=== PATIENT | male | born 1970 ===

== ENCOUNTER 2022-11-24 16:28 | Emergency (ER) | payer BC, OTHER ==
[~2022-11-24 16:28] MED LIST: ALDACTONE25 MG PO; ATORVASTATIN CA20 M1 PO; ERYTHROMYCIN OPH1 GM OPH; FUROSEMIDE40 MG PO; GABAPENTIN800 MG PO; Ipratropium Brom3 ML INH; LACTULOSE20 GM/30 M PO; LOTEPREDNOL ETA10 ML OP; PANTOPRAZOLE SO40 MG PO; PROPRANOLOL HCL20 M1 PO
== END 2022-11-24 18:50 | disposition left against medical advice (07) ==
LOC: ED 16:28
DX: M79.662 Pain in left lower leg (principal); Z53.21 Procedure and treatment not carried out due to patient leaving prior to being seen by health care provider

== ENCOUNTER 2023-08-05 00:19 | Emergency (ER) | payer OTHER ==
[~2023-08-05] VITALS: Ht 177.8 cm; Wt 65.8 kg
[2023-08-05] MEDS ORDERED: SODIUM CHLORIDE 0.9% 1,000 ML IV ONE (00:45)
[2023-08-05 01:09] LABS: HEMATOCRIT 40.6 % (42.0-52.0); MEAN CORPUSCULAR HGB 34.2 pg (27.0-31.0); MEAN CORPUSCULAR HGB CONC 33.5 g/dl (33.0-37.0); MEAN PLATELET VOLUME 10.7 fl (9.6-12.3); PLATELET COUNT AUTOMATED 44 10*3/uL (130-400); RED BLOOD COUNT 3.98 10*6/uL (4.50-5.90); RED CELL DISTRI WIDTH 15.9 % (0-14.5); WHITE BLOOD COUNT 6.4 10*3/uL (4.8-10.8)
[2023-08-05 01:11] LABS: MANUAL DIFF REFLEX YES
[2023-08-05 01:27] LABS: ALKALINE PHOSPHATASE 121 U/L (46-116); BUN 7 mg/dl (9-23); CHLORIDE 106 mmol/L (98-107); LIPASE 44 U/L (12-53); POTASSIUM 3.1 mmol/L (3.4-5.1); SGPT/ALT 22 U/L (5-49); TOTAL PROTEIN 6.5 gm/dL (6.0-8.0)
[2023-08-05 01:45] LABS: OVALOCYTES FEW; PLATELET SUFFICIENCY LOW (NORMAL); TOTAL CELLS COUNTED 100 #CELLS
[2023-08-05] MEDS ORDERED: LACTULOSE 20 GM/30 ML UDC PO ONE (01:45)
[2023-08-05] MEDS ORDERED: MAGNESIUM SULFATE 100 ML IV ONE (01:45)
[2023-08-05 01:46] LABS: SPHEROCYTES FEW
[2023-08-05] MEDS ORDERED: POTASSIUM CHLORIDE IN WATER 100 ML IV SCH (02:00)
[2023-08-05 02:26] LABS: ACT PARTIAL THROMBO TIME 32.5 SECONDS (20.0-32.1)
[2023-08-05] MEDS ORDERED: Albuterol Sulf/Ipratropium 3 ML VIAL NEB ONE ×2 (02:50→06:55)
[2023-08-05] MEDS ORDERED: POTASSIUM CHLORIDE 20 MEQ TAB PO ONE (02:55)
[2023-08-05] MEDS ORDERED: Ceftriaxone Sodium 1 GM/10 ML SYR IV ONE (05:50)
[2023-08-05] MEDS ORDERED: MULTIVITAMIN CONCENTRATE (IV) 10 ML,Thiamine 100 MG,FOLIC ACID 1 MG in SODIUM CHLORIDE ... IV ONE (06:50)
[2023-08-05] MEDS ORDERED: diphenhydrAMINE hydrochloride 50 MG/ML VIAL IV ONE (11:45)
[2023-08-05] MEDS ORDERED: Metoclopramide Hydrochloride 10 MG/2 ML AMP IV ONE (11:45)
[2023-08-05 12:12] LABS: BILIRUBIN 2+ (Negative); BLOOD Negative (Negative); CLARITY Cloudy (Clear); COLOR Orange (Yellow); GLUCOSE Negative (Negative); KETONE Negative (Negative); NITRITE Positive (Negative); SPECIFIC GRAVITY >= 1.030 (1.001-1.030)
[2023-08-05 12:18] LABS: LEUKO ESTERASE 1+ (Negative)
[2023-08-05 12:19] LABS: URINE AMPHETAMINES Negative (1000ng/ml); URINE BARBITURATES Negative (200ng/ml); URINE BENZODIAZEPINES Negative (200ng/ml); URINE CANNABINOIDS (THC) Negative (50ng/ml); URINE COCAINE Negative (300ng/ml); URINE METHADONE Negative (300ng/ml); URINE OPIATES Negative (300ng/ml); URINE PHENCYCLIDINE Negative (25ng/ml)
[2023-08-05 12:29] LABS: BACTERIA 1+; MUCOUS 3+
[2023-08-05] MEDS ORDERED: Albuterol Sulfate 2.5 MG/3 ML VIAL NEB ONE (12:35)
[2023-08-05] MEDS ORDERED: Albuterol Sulfate 2.5 MG/3 ML VIAL NEB SCH (20:00)
[2023-08-06] MEDS ORDERED: Albuterol Sulfate 2.5 MG/3 ML VIAL NEB ONE (03:35)
[2023-08-06] MEDS ORDERED: LACTULOSE 20 GM/30 ML UDC PO ONE (03:35)
[2023-08-06] MEDS ORDERED: Ceftriaxone Sodium 1 GM/10 ML SYR IV ONE (03:35)
[2023-08-06] MEDS ORDERED: Albuterol Sulfate 2.5 MG/3 ML VIAL NEB SCH (07:35)
== END 2023-08-06 10:38 | disposition short-term general hospital (02) ==
LOC: ED 00:19
PROVIDERS: Internal Medicine
DX: K76.82 Hepatic encephalopathy (principal); R18.8 Other ascites; E87.6 Hypokalemia; E87.20 Acidosis, unspecified; J44.9 Chronic obstructive pulmonary disease, unspecified; I10 Essential (primary) hypertension; F17.200 Nicotine dependence, unspecified, uncomplicated; Z88.1 Allergy status to other antibiotic agents; Z88.8 Allergy status to other drugs, medicaments and biological substances; Z79.899 Other long term (current) drug therapy; Z98.890 Other specified postprocedural states

== ENCOUNTER 2023-08-15 22:29 | Emergency (ER) | payer OTHER | END 2023-08-15 22:59 | disposition home or self-care (01) | LOC: ED 22:29 | DX: H57.89 Other specified disorders of eye and adnexa (principal); E11.9 Type 2 diabetes mellitus without complications; I10 Essential (primary) hypertension; Z88.8 Allergy status to other drugs, medicaments and biological substances; Z98.890 Other specified postprocedural states; F10.10 Alcohol abuse, uncomplicated; F17.200 Nicotine dependence, unspecified, uncomplicated ==